=== PATIENT | male | born 1955 | race African-American/Black ===

== ENCOUNTER 2024-01-16 12:05 | Outpatient (REF) | payer OTHER, SELFPAY ==
[2024-01-17 15:34] LABS: Appearance Urine Turbid; Color Urine Dark Yellow; Glucose Urine UA Negative (Negative); Leukocyte Esterase Urine Trace (Negative); Nitrite Urine Negative (Negative); PH 5.5 (5.0-9.0); Specific Gravity - Urine 1.025 (1.005-1.025); UMIC TRIGGER UACC YES; Urine Blood Negative (Negative); Urine Ketones Trace mg/dL (Negative); Urine Protein 30 (1+) mg/dL (Neg-Trace)
[2024-01-17 15:46] LABS: Bacteria Urine None Seen (None Seen); Calcium Oxalate Crystals Urine Present; RBC Urine 0-2 /HPF (0-2); Squamous Epithelial Cell Urine 0-2 /HPF (0-2); WBC Urine 0-5 /HPF (0-5)
== END 2024-01-16 12:06 | disposition home or self-care (01) ==
LOC: HO.HHCLNP 12:05
PROVIDERS: Visit Provider Nurse Practitioner
DX: R39.9 Unspecified symptoms and signs involving the genitourinary system (principal)
CPT/HCPCS: 81001

== ENCOUNTER 2024-01-17 10:47 | Outpatient (REF) | payer SELFPAY ==
[2024-01-17 14:38] LABS: Prostate Specific Antigen Scr 18.56 ng/mL (<0.05-4.0)
== END 2024-01-17 10:48 | disposition home or self-care (01) ==
LOC: HO.HHCL 10:47
PROVIDERS: Visit Provider Nurse Practitioner
DX: R39.9 Unspecified symptoms and signs involving the genitourinary system (principal); Z12.5 Encounter for screening for malignant neoplasm of prostate
CPT/HCPCS: 36415; 84153

== ENCOUNTER 2024-08-08 11:17 | Outpatient (REF) | payer OTHER, SELFPAY ==
--- OUTSIDE RECORDS SUMMARY | 2024-08-08 11:39 | XMS_ITS | Continuity of Care Document ---
Author Organization [facility] Address [address] [facility] [address] [place] [address] Phone Care Team Providers Care Program Support Clerk Name Role Phone JAJA OD, KI Unavailable [...] Provider Providers Copied on Encounter Castro [facility]ia, [facility], [place], [place], [id number], [place] tel:[phone] Carlos Tapia regular eye exam, today full exam (chief complaint) Age-related nuclear cataract, bilateralKeratoco njunct sicca, not specified as Sjogren's, bilateral JAJA FERRER [address], [place], [id number] , [place]. tel: [phone] Referring Provider: WALTER HOLMAN MD, [address] [facility] [address], [place], [address]. tel:[phone] Family History Family Member Type Diagnosis Age At Onset No Information Payers Payer name Insurance type Covered republican ID Authoriza tion(s) [employer] Options-Comm Cross Assignment-DERRICK [id number] Social History Type Description Quantity Date Captured Comments Alcohol Use Details Unknown Caffeine Use Details Unknown Tobacco Use Status No Information Smoking Status No Information Sex Male Chief Complaint And Reason For Visit From encounter dated 03/07/2021 15:00'. regular eye exam, today full exam [...] Date Instruction Additional Infor mation Impression/Plan - Di scussed findings of chronic inflammation OU consistent with dryness. Patient advised to use warm compresses with lid massage daily. Recommended artificial tears at least QID or PRN OU. Discussed benefit of O3FA supplements. Related to Keratoconjunct sicca, not specified as Sjogren's, bilateral Impression/Plan - Al l findings discussed with the patient. Surgery is not indicated at this time. Monitor. Patient advised can get new spec Rx if desires. Related to Age-related nuclear cataract, bilateral Assessments Type Assessment Date assessment Age-related nuclear cataract, bi lateral (H25.13) - assessment Keratoconjunct sicca , not specified as Sjogren's, bilateral (H16.223) - impression Age-related nuclear cataract, bi lateral (H25.13) - impression Keratoconjunct sicca , not specified as Sjogren's, bilateral (H16.223) - Patient Care Teams Name Effective Dates (start - stop) Status Members No Information
--- OUTSIDE RECORDS SUMMARY | 2024-08-08 11:39 | XMS_ITS | Encounter Summary ---
Author Organization [employer] Address [address] [place] [address] [address] [place] [address] Care Team Providers Care Project Assistant Name Role Phone Parmindernavid Celeste FATOU Primary Care Provider [phone] Encounter Details Date Type Department Care Team (Latest Contact Info) Description 08/08/2024 Travel Social History Tobacco Use Types Packs/Day Years Used Date Smoking Tobacco: Former Cigarettes Passive Smoke Exposure: Current Smokeless Tobacco: Former Depression Answer Date Recorded Patient Health Questionnaire-9 Score 13 08/08/2024 Patient Health Questionnaire-9 Score 13 08/08/2024 Last PHQ-9: Questionnaire Data Not on file 0 08/08/2024 Depression Answer Date Recorded Patient Health Questionnaire-2 Score 4 08/08/2024 Sex and Gender Information Value Date Recorded Sex Assigned at Male 01/16/2024 2:03 PM EDT Legal Sex Male 11:39 AM EDT Gender Identity Male 01/16/2024 2:03 PM EDT Sexual Orientation Straight 01/16/2024 2: 03 PM EDT documented as of this encounter Functional Status * Over the past 2 weeks, how often have you been bothered by any of the following problems? Question Answer Date of Assessment Author Patient Health Questionnaire -2 Score 4 08/08/2024 11:15 AM EDT Nishi Ross MA * Little interest or pleasure in doing things Answer Date of Assessment Author More than half the days 08/08/2024 11:15 AM EDT Nishi Ross MA * Feeling down, depressed, or hopeless Answer Date of Assessment Author More than half the days 08/08/2024 11:15 AM Nishi Barreto MA * Trouble falling or staying asleep, or sleeping too much Answer Date of Assessment Author More than half the days 08/08/2024 11:15 AM Nishi Barreto MA * Feeling tired or having little energy Answer Date of Assessment Author Nearly every day 08/08/2024 11:15 AM Nishi Barreto MA * Poor appetite or overeating Answer Date of Assessment Author Not at all 08/08/2024 11:15 AM Nishi Barreto MA * Feeling bad about yourself - or that you are a failure or have let yourself or your family down Answer Date of Assessment Author More than half the days 08/08/2024 11:15 AM Nishi Barreto MA * Trouble concentrating on things, such as reading the newspaper or watching television Answer Date of Assessment Author More than half the days 08/08/2024 11:15 AM Nishi Barreto MA * Moving or speaking so slowly that other people could have noticed? Or the opposite - being so fidgety or restless that you have been moving around a lot more than usual. Answer Date of Assessment Author Not at all 08/08/2024 11:15 AM Nishi Barreto MA * Thoughts that you would be better off or hurting yourself in some way Answer Date of Assessment Author Not at all 08/08/2024 11:15 AM Nishi Barreto MA * Patient Health Questionnaire-9 Score Answer Date of Assessment Author 13 08/08/2024 11:15 AM Nishi Barreto MA * How difficult have these problems made it for you to do your work, take care of things at home, or get along with other people? Answer Date of Assessment Author Somewhat difficult 08/08/2024 11:15 AM Nishi Mitchell MA * Over the last 2 weeks, how often have you been bothered by any of the following problems? Question Answer Date of Assessment Author Feeling nervous, anxious, or on edge 0 08/08/2024 11:16 AM EDT Nishi Ross MA Not being able to stop or co ntrol worrying 2 08/08/2024 11:16 AM EDT Nishi Ross MA Worrying too much about diff erent things 2 08/08/2024 11:16 AM EDT Nishi Ross MA Trouble relaxing 2 08/08/2024 11:16 AM EDT Nishi Ross MA Being so restless that it is hard to sit still 2 08/08/2024 11:16 AM EDT Nishi Ross MA Becoming easily annoyed or irritable 2 08/08/2024 11:16 AM EDT Nishi Ross MA Feeling afraid as if somethi ng awful might happen 0 08/08/2024 11:16 AM EDT Nishi Ross MA CARMEN-7 Total Score 10 08/08/2024 11:16 AM EDT Nishi Ross MA documented as of this encounter Plan of Treatment Not on file documented as of this encounter Visit Diagnoses Not on filedocumented in this encounter Additional Health Concerns Assessment Noted Time PHQ-9 Depression Total Score: 13 025 11:15 AM EDT documented as of this encounter Care Teams Project Assistant Relationship Specialty Start Date End Date Celeste Luciano NP [address] [place] [address] PCP - General Family Medicine 01/30/24 documented as of this encounter
--- OUTSIDE RECORDS SUMMARY | 2024-08-08 11:39 | XMS_ITS | Encounter Summary ---
Author Organization [employer] Address [address] [place] [address] [address] [place] [address] Care Team Providers Care Water Resource Agent Name Role Phone Celeste Luciano FATOU Primary Care Provider [phone] Reason for Visit * Reason Onset Date Comments chartprep 08/07/2024 Encounter Details Date Type Department Care Team (Late st Contact Info) Description 08/07/2024 Telephone [facility] [address] [place] [address] Nishi Ross MA chartprep Social History Tobacco Use Types Packs/Day Years [...] PM EDT documented as of this encounter Miscellaneous Notes * Telephone Encounter - Nishi Ross MA - 08/07/2024 10:44 AM EDT Chart Prep Labs: done Images: not applicable Referrals: not applicable referral was cancelled see on referrals notes Vaccines due: Covid, Flu, PCV20, Tdap, and Zoster Screenings: colonoscopy Overdue care gaps: SBIRT, SDOH, PHQ-9, CARMEN-7, Oral health screening, and Disability screen documented in this encounter Plan of Treatment Not on file documented as of this encounter Visit Diagnoses Not on filedocumented in this encounter Care Teams Water Resource Agent Relationship Specialty Start Date End Date Celeste Luciano NP [address] [place] [address] PCP - General Family Medicine 01/30/24 documented as of this encounter
--- OUTSIDE RECORDS SUMMARY | 2024-08-08 11:39 | XMS_ITS | Encounter Summary ---
Author Organization [employer] Address [address] [place] [address] [address] [place] [address] Care Team Providers Care Adjunct Psychology Instructor Name Role Phone Celeste Luciano NP Primary Care Provider [phone] Reason for Referral * Consultation (Routine) - Authorized Specialty Diagnoses / Procedures Referred By Contmatt t Referred To Contact Optometry Diagnoses Primary hypertension Celeste Luciano NP [address] [place] [address] Phone: tel: fax: [facility] [address] [place] [address] Phone: tel: fax: Referral ID Status Reason Start Date Expiration Date Visits Requested Visits Authorized [id number] Authorized Consult and Treat 08/08/2024 08/08/2025 1 1 Reason for Visit * Reason Comments Follow-up Encounter Details Date Type Department Care Team (Late st Contact Info) Description 08/08/2024 10:00 AM EDT Office Visit [facility] [address] [place] [address] Celeste Luciano NP [address] [place] [address] Primary hypertension (Primary Dx); Elevated PSA; Acute right-sided low back pain without sciatica; Hx of primary hypertension; Constipation, unspecified constipation type Social History Tobacco Use Types Packs/Day Years [...] PM EDT documented as of this encounter Last Filed Vital Signs Vital Sign Reading Time Taken Comments Blood Pressure 141/77 08/08/2024 10:16 AM EDT Pulse 61 08/08/2024 10:16 AM EDT Temperature 36.8 ??C (98.2 ??F) 08/08/2024 10:16 AM E DT Respiratory Rate 15 08/08/2024 10:16 AM EDT Oxygen Saturation 98% 08/08/2024 10:16 AM EDT Inhaled Oxygen Concentration - - Weight 87.5 kg (193 lb) 08/08/2024 10:16 AM EDT Height 170.2 cm (5' 7 ) 08/08/2024 10:16 AM EDT Body Mass Index 30.23 08/08/2024 10:16 AM EDT documented in this encounter Functional Status * Over the [...] 11:15 AM EDT Nishi Ross MA * Trouble falling or staying asleep, or sleeping too much Answer Date of Assessment Author More than half the days 08/08/2024 11:15 AM EDNishi Burr MA * Feeling tired or having little [...] or on edge 0 08/08/2024 11:16 AM Nishi Barreto MA Not being able to stop or co ntrol worrying 2 08/08/2024 11:16 AM Nishi Barreto MA Worrying too much about diff erent [...] as of this encounter Plan of Treatment Scheduled Orders Name Type Priority Associated Diagnoses Orde r Schedule Basic Metabolic Panel Lab Routine Primary hypertension Expected: 08/08/2024 (Approximate), Expires: 08/08/2025 Albumin, Random Urine W/Creatinine Lab Routine Primary hypertension Expected: 08/08/2024 (Approximate), Expires: 08/08/2025 Urinalysis, Complete, with Reflex to Culture Lab Routine Elevated PSA Ordered: 08/08/2024 CBC auto differential Lab Routine Elevated PSA Expected: 08/08/2024 (Approximate), Expires: 08/08/2025 PSA, Total With Reflex to PSA, Free Lab Routine Elevated PSA Expected: 08/08/2024 (Approximate), Expires: 08/08/2025 C-reactive Protein Lab Routine Elevated PSA Expected: 08/08/2024 (Approximate), Expires: 08/08/2025 Lipid Panel, Standard Lab Routine Primary hypertension Expected: 08/08/2024 (Approximate), Expires: 08/08/2025 Scheduled Referrals Name Type Priority Associated Diagnoses Orde r Schedule Referral to [facility] Outpatient Referral Routine Primary hypertension Expected: 08/08/2024 (Approximate), Expires: 08/08/2025 documented as of this encounter Visit Diagnoses Diagnosis Primary hypertension- Primary Unspecified essential hypertension Elevated PSA Elevated prostate specific antigen (PSA) Acute right-sided low back pain without sciatica Hx of primary hypertension Constipation, unspecified constipation type documented in this encounter Additional Health Concerns Assessment Noted Time PHQ-9 Depression Total Score: 13 025 11:15 AM EDT documented as of this encounter Care Teams Adjunct Psychology Instructor Relationship Specialty Start Date End Date Celeste Luciano NP [address] [place] [address] PCP - General Family Medicine 01/30/24 documented as of this encounter
--- OUTSIDE RECORDS SUMMARY | 2024-08-08 11:39 | XMS_ITS | Encounter Summary ---
Author Organization [employer] Address [address] [place] [address] 7[address] [place] [address] Care Team Providers Care Commercial Litigation Paralegal Name Role Phone Celeste Luciano NP Primary Care Provider [phone] Encounter Details Date Type Department Care Team ([facility] st Contact Info) Description 07/15/[address] [facility] MEDICINE [address] [place] [address] Celeste Luciano NP [address] [place] [address] Social History Tobacco Use Types Packs/Day Years Used Date Smoking Tobacco: Former Cigarettes Passive Smoke Exposure: Current Smokeless Tobacco: Former Sex and Gender Information Value Date Recorded Sex Assigned at Male 01/16/2024 2:03 PM EDT Legal Sex Male 11:39 AM EDT Gender Identity Male 01/16/2024 2:03 PM EDT Sexual Orientation Straight 01/16/2024 2: 03 PM EDT documented as of this encounter Plan of Treatment Not on file documented as of this encounter Visit Diagnoses Not on filedocumented in this encounter Care Teams Commercial Litigation Paralegal Relationship Specialty Start Date End Date Celeste Luciano NP [address] [place] [address] PCP - General Family Medicine 01/30/24 documented as of this encounter
--- OUTSIDE RECORDS SUMMARY | 2024-08-08 11:39 | XMS_ITS | Clinical Summary ---
Author Organization [employer] Address [address] [facility] [address] [place] [address] Care Team Providers Care Aging Room Operator Name Role Phone Parmindernavid Celeste FATOU Primary Care Provider [phone] Allergies No known active allergies Medications Blood Pressure kitIndications: Hx of primary hypertension 1 each 2 times daily. 1 kit 01/16/20 24 025 Active hydrocortisone 1 % creamIndication s:Genital pruritus Apply topically 2 times daily. 28 g 01/16/20 24 Active dutasteride (Avodart) 0.5 MG capsule Take 0.5 mg by mouth Once per day. Active silodosin (Rapaflo) 8 MG capsule Take 8 mg by mouth Once per day. Active baclofen (Lioresal) 10 MG tabletIndicatio ns:Acute right-sided low back pain without sciatica Take one tablet TID PRN 270 tablet 08/09/19 25 Active Diclofenac Sodium 1 % gelIndications: Acute right-sided low back pain without sciatica Apply 1 g topically if needed in the morning, at noon, and at bedtime (pain). 100 g 1 08/09/19 25 025 Active acetaminophen (Tylenol Extra Strength) 500 MG tabletIndicatio ns:Acute right-sided low back pain without sciatica Take 2 tablets (1,000 mg) by mouth every 6 (six) hours if needed for mild pain. 720 tablet 08/09/19 25 025 Active losartan (Cozaar) 25 MG tabletIndicatio ns:Primary hypertension,Hx of primary hypertension Take 1 tablet (25 mg) by mouth Once per day. 90 tablet 1 08/09/19 25 025 Active tamsulosin (Flomax) 0.4 MG 24 hr capsuleIndicati ons:Elevated PSA Take 1 capsule (0.4 mg) by mouth Once per day. 90 capsule 1 08/09/19 25 025 Active docusate sodium (Colace) 100 MG capsuleIndicati ons:Constipatio n, unspecified constipation type Take 1 capsule (100 mg) by mouth 2 times daily. 180 capsule 1 08/09/19 25 025 Active losartan (Cozaar) 25 MG tabletIndicatio ns:Hx of primary hypertension TAKE 1 TABLET BY MOUTH EVERY DAY 30 tablet 1 03/11/20 24 025 Discontinued(Re order (will not trigger notification to Pharmacy)) tamsulosin (Flomax) 0.4 MG 24 hr capsule Take 0.4 mg by mouth Once per day. 025 Discontinued(Re order (will not trigger notification to Pharmacy)) Active Problems Problem Noted Date Diagnosed Date Primary hypertension 08/08/2024 Encounters Date Type Department Care Team Description 08/08/2024 10:00 AM EDT Office Visit [facility] MEDICINE [address] [place] [address] Celeste Luciano NP Primary hypertension (Primary Dx); Elevated PSA; Acute right-sided low back pain without sciatica; Hx of primary hypertension; Constipation, unspecified constipation type 08/08/2024 Travel 08/07/[address] [address] Nishi Ross MA chartprep 07/18/[address] [address] Nishi Ross MA scheduled follow up appointment 07/15/[address] [address] Celeste Luciano NP from Last 3 Months Social History Tobacco Use Types Packs/Day Years Used Date Smoking Tobacco: Former Cigarettes Passive Smoke Exposure: Current Smokeless Tobacco: Former Tobacco Cessation:Counseling Given: Not Answered Depression Answer Date Recorded Patient Health Questionnaire-9 [...] Orientation Straight 01/16/2024 2: 03 PM EDT Last Filed Vital Signs Vital Sign Reading [...] Mass Index 30.23 08/08/2024 10:16 AM EDT Plan of Treatment Health Maintenance Due Date Last Done Comments CT Colonography 1956 Colonoscopy 1956 Depression Screening 1956 FIT 1956 FOBT 1956 Lipid Panel 1956 SDOH Screening 1956 Sigmoidoscopy 1956 Hepatitis C Screening 1974 DTaP/Tdap/Td Vaccines (1 - Tdap) 1975 Pneumococcal Vaccine: 50+ Ye ars (1 of 1 - PCV) 2006 Zoster Vaccines (1 of 2) 2006 COVID-19 Vaccine ( - 2023-2 5 season) 2023 Influenza Vaccine (#1) 2023 Colorectal Cancer Screening 05/25/2024 FIT DNA/Cologuard 05/25/2024 05/25/2021 Alcohol/Substance Use Screening 08/08/2025 Tobacco Screening 08/08/2025 08/08/2024 RSV Patients and Pa tients Aged 60 years or older (1 - 1-dose 75+ series) 2031 HIB Vaccines Aged Out No longer eligi ble based on patient's age to complete this topic HPV Vaccines Aged Out No longer eligi ble based on patient's age to complete this topic Hepatitis A Vaccines Aged Out No long er eligible based on patient's age to complete this topic Hepatitis B Vaccines Aged Out No long er eligible based on patient's age to complete this topic IPV Vaccines Aged Out No longer eligi ble based on patient's age to complete this topic Meningococcal B Vaccine Aged Out No l onger eligible based on patient's age to complete this topic Meningococcal Vaccine Aged Out No hany jeniffer eligible based on patient's age to complete this topic RSV under 20 months Aged Out No longe r eligible based on patient's age to complete this topic Rotavirus Vaccines Aged Out No longer eligible based on patient's age to complete this topic Insurance [employer] F[employer] Care Teams Aging Room Operator Relationship Specialty Start Date End Date Celeste Luciano NP [address] [place] [address] PCP - General Family Medicine 01/30/24
--- OUTSIDE RECORDS SUMMARY | 2024-08-08 11:39 | XMS_ITS | Encounter Summary ---
Author Organization [employer] Address [address] [place] [address] [address] [place] [address] Care Team Providers Care Vehicle Service Agent Name Role Phone Celeste Luciano NP Primary Care Provider [phone] Reason for Visit * Reason Onset Date Comments Med Refill 04/03/2024 Encounter Details Date Type Department Care Team (Late st Contact Info) Description 04/03/2024 Refill [facility] [address] [place] [id number] Cabrera Lezama MD [address] [place] [address] Urinary retention Social History Tobacco Use Types Packs/Day Years [...] as of this encounter Visit Diagnoses Diagnosis Urinary retention Unspecified retention of urine documented in this encounter Care Teams Vehicle Service Agent Relationship Specialty Start Date End Date Celeste Luciano NP [address] [place] [address] PCP - General Family Medicine 01/30/24 documented as of this encounter
--- OUTSIDE RECORDS SUMMARY | 2024-08-08 11:39 | XMS_ITS | Clinical Summary ---
Author Organization [facility] Address [address] [place] [address] Care Team Providers Care Material Handler Name Role Phone Unavailable Primary Care Provider Unavailabl e Allergies No known active allergies Medications No known medications Social History Tobacco Use Types Packs/Day Years Used Date Smoking Tobacco: Never Assessed Sex and Gender Information Value Date Recorded Sex Assigned at Not on file Legal Sex Male 10:53 AM EDT Gender Identity Not on file Sexual Orientation Not on file Last Filed Vital Signs Vital Sign Reading Time Taken Comments Blood Pressure 143/79 01/11/2021 11:11 AM EDT Pulse 64 01/11/2021 11:11 AM EDT Temperature 36.5 ??C (97.7 ??F) 01/11/2021 11:11 AM E DT Respiratory Rate - - Oxygen Saturation 97% 01/11/2021 11:11 AM EDT Inhaled Oxygen Concentration - - Weight 90.7 kg (200 lb) 01/11/2021 11:11 AM EDT Height 170 cm (5' 6.93 ) 01/11/2021 11:11 AM EDT Body Mass Index 31.39 01/11/2021 11:11 AM EDT Plan of Treatment Health Maintenance Due Date Last Done Comments Hepatitis C Virus Screening 1956 DTaP/Tdap/Td Vaccines (1 - Tdap) 1975 Colonoscopy 2001 Pneumococcal Vaccines 50+ (1 of 1 - PCV) 2006 Zoster (Shingles) Vaccine (1 of 2) 2006 COVID-19 Vaccine ( - 2023-2 5 season) 2023 Influenza Vaccine 10/24/2024 RSV Vaccine 60 years and old er and Patients (1 - 1-dose 75+ series) 2031 Hepatitis B Vaccines Aged Out No long er eligible based on patient's age to complete this topic Insurance [facility]
--- OUTSIDE RECORDS SUMMARY | 2024-08-08 11:39 | XMS_ITS | Encounter Summary ---
Author Organization [employer] Address [address] [place] [address] 7[address] [place] [address] Care Team Providers Care Commercial Lines Manager Name Role Phone Celeste Luciano NP Primary Care Provider [phone] Reason for Visit * Reason Onset Date Comments Med Refill 04/03/2024 Encounter Details Date Type Department Care Team (Late st Contact Info) Description 04/03/2024 Refill [facility] MED[facility] [address] [place] [address] Celeste Luciano NP [address] [place] [address] Hx of primary hypertension Social History Tobacco Use Types Packs/Day Years [...] as of this encounter Visit Diagnoses Diagnosis Hx of primary hypertension documented in this encounter Care Teams Commercial Lines Manager Relationship Specialty Start Date End Date Celeste Luciano NP [address] [place] [address] PCP - General Family Medicine 01/30/24 documented as of this encounter
--- OUTSIDE RECORDS SUMMARY | 2024-08-08 11:39 | XMS_ITS | Patient Health Record ---
Author Organization [facility] [facility] Billing Info Address [address] [place], [place] [id number] Care Team Providers Care Post Graduate Internship Name Role Phone DR MIQUEL MARINELLI Primary Care Provider Unavailabl e Allergies No Known Allergies Reason For Referral No Information Medications Medication SIG (Take, Route, Frequency, Duration) Notes Start Date End Date Status Tadalafil 10 MG 1 tablet as needed O rally for 30 day(s) Active Atorvastatin Calcium 20 MG 1 tablet Oral ly Once a day for 30 day(s) Active Finasteride 5 MG 1 tablet Orally Once a day for 30 day(s) Active Tamsulosin HCl 0.4 MG 1 capsule Orally O nce a day for 30 day(s) Active Solifenacin Succinate 5 MG 1 tablet Oral ly Once a day for 30 day(s) Active Social History Tobacco Use: Social History Observation Description Date Details (start date - stop date) Former Smoker NA - NA Tobacco Status: Question Answer Notes Patient is a former smoker Plan Of Treatment Pending Test Test Name Order Date COLONOSCOPY, SCREENING, INDIVIDUAL W/OUT HIGH RISK (G0121) 03/31/2021 Insurance Providers Payer Name Payer Address Payer Phone Subscriber Number Group Number Insured Name Patient Relationship to Insured Coverage Start Date Coverage End Date BR[employer] TH CLAIMS PRIOR TO 2021 [address] [address] JESSICA SARGENT [id number] ALYSIA GOLDMAN Self - patient is the insured Medical (General) History Medical History History ICD Code Hyperlipidemia Hypertension BPH Neurogenic bladder Surgical History Surgery Date(Month/Year) laminectomy hernia repair
[2024-08-08 13:07] LABS: MANUAL DIFF FLAG NO
[2024-08-08 13:12] LABS: Appearance Urine Turbid; Color Urine Yellow; Glucose Urine UA Negative (Negative); Leukocyte Esterase Urine Negative (Negative); Nitrite Urine Negative (Negative); PH 5.5 (5.0-9.0); UMIC TRIGGER UACC YES; Urine Blood Negative (Negative); Urine Ketones Trace mg/dL (Negative); Urine Protein 30 (1+) mg/dL (Neg-Trace)
[2024-08-08 13:15] LABS: Basophils Percent Auto 0.8 % (0-2); Eosinophils Absolute Auto 0.1 X10*3/uL (0.0-0.4); Eosinophils Percent Auto 2.6 % (0-4); Hematocrit 44.1 % (42.0-52.0); Hemoglobin 14.7 g/dl (14.0-18.0); Imm Gran Abs Auto 0.04 X10*3/uL (0.00-0.03); Imm Gran Pct Auto 0.8 % (0.0-0.4); Lymphocytes Absolute Auto 1.8 X10*3/uL (1.2-4.9); Mean Corpuscular HGB Conc 33.3 g/dl (31.0-36.0); Mean Corpuscular Hemoglobin 30.4 pg (27.0-33.0); Mean Corpuscular Volume 91.1 fL (80.0-98.0); Mean Platelet Volume 9.6 fL (9.4-12.4); Monocytes Absolute Auto 0.5 X10*3/uL (0.1-1.2); Monocytes Percent Auto 9.1 % (2-11); Neutrophils Absolute Auto 2.6 x10*3/uL (2.0-8.3); Neutrophils Percent Auto 50.7 % (45-73); Platelet Count 219 X10*3/uL (160-400); Red Blood Count 4.84 X10*6/uL (4.60-5.80); Red Cell Distribution Width 13.2 % (11.0-16.0); White Blood Count 5.1 X10*3/uL (4.8-10.8)
[2024-08-08 13:17] LABS: Bacteria Urine None Seen (None Seen); Hyaline Casts Urine 0-2 /LPF (0-2); RBC Urine 0-2 /HPF (0-2); Squamous Epithelial Cell Urine 0-2 /HPF (0-2); WBC Urine 0-5 /HPF (0-5)
[2024-08-08 13:42] LABS: Creatinine Urine 159.83 mg/dL; Microalbum/Creatinine Ratio Ur 99.4 ug/mg cr (<30)
[2024-08-08 13:55] LABS: Anion Gap 12 (12-20); Blood Urea Nitrogen 13 mg/dL (9-16); Calcium 9.3 mg/dL (8.4-10.2); Carbon Dioxide 27 mmol/L (22-29); Chloride 103 mmol/L (96-108); Cholesterol 197 mg/dL (<200); Estimated Glomerular Filt Rate > 60; Glucose Random 83 mg/dL (60-115); HDL Cholesterol 46 mg/dL (>40); LDL Cholesterol Calculated 140 mg/dL (<100); Potassium 4.4 mmol/L (3.3-5.1); Sodium 138 mmol/L (135-145); Triglycerides 57 mg/dL (<150)
[2024-08-08 14:00] LABS: PSA,Total (Free>4and<10) 24.26 ng/mL (0.00-4.00)
== END 2024-08-08 11:18 | disposition home or self-care (01) ==
LOC: HO.HHCL 11:17
PROVIDERS: Visit Provider Nurse Practitioner
DX: R97.20 Elevated prostate specific antigen [PSA] (principal); R39.9 Unspecified symptoms and signs involving the genitourinary system; I10 Essential (primary) hypertension; Z12.5 Encounter for screening for malignant neoplasm of prostate
CPT/HCPCS: 36415; 80048; 80061; 81001; 82043; 82570; 84153; 85025; 86140

== ENCOUNTER 2025-03-09 13:54 | Outpatient (REF) | payer OTHER, SELFPAY ==
--- OUTSIDE RECORDS SUMMARY | 2021-03-07 10:00 | XMS_ITS | Continuity of Care Document ---
Author Organization [facility] Address [address] [facility] [address] [place] [address] Phone Care Team Providers Care Counseling Center Director Name Role Phone JAJA OD, KI Unavailable Unavailable Medications Medication Instructions Dosage Effective Dates (start - stop) Status Comments tamsulosin 0.4 mg capsule take 1 capsule by oral route every day 1/2 hour following the same meal each day 0.4 MG - Active Miralax 17 gram oral powder packet take 1 packet by oral route every day mixed with 8 oz. water, juice, soda, coffee or tea - Active tizanidine 4 mg capsule take 1 capsule by oral route every 6 - 8 hours as needed not to exceed 3 doses in 24 hours 4 MG - Active finasteride 5 mg tablet take 1 tablet by oral route every day 5 MG - Active losartan 50 mg tablet take 1 tablet by o ral route every day 50 MG - Active Procedures Procedure Date Ophth Serv: Med Exam; Comp New Ophth Serv: Med Exam; Comp New Advance Directives Directive Yes / No Effective Date File Name No Information Encounters Encounter Description Practice Location Reason(s) For Visit Diagnoses Date Provider Providers Copied on Encounter Castro Tapia, [facility] [employer] [place], [place], [id number], [place] tel:[phone] Carlos Tapia regular eye exam, today full exam (chief complaint) Age-related nuclear cataract, bilateralKeratoco njunct sicca, not specified as Sjogren's, bilateral JAJA FERRER [address], [place], [id number] , [place]. tel: [phone] Referring Provider: WALTER HOLMAN MD, [address] [facility] [address], [place], [address]. tel:[phone] Family History Family Member Type Diagnosis Age At Onset No Information Payers Payer name Insurance type Covered alliance party ID Authoriza tiann(s) Health Options-Comm Cross Assignment-DERRICK [id number] Social History Type Description Quantity Date Captured Comments Alcohol Use Details Unknown Caffeine Use Details Unknown Tobacco Use Status No Information Smoking Status No Information Sex Male Chief Complaint And Reason For Visit From encounter dated '03/07/2021 15:00'. regular eye exam, today full exam (chief complaint). Description: The 65 year old male presents forevaluation of regular eye exam, today full exam in the right eye and left eye, Va, IOP check and DFE exam in both eyes. Reason For Referral Reason For Referral No Information History Of Present Illness Encounter Date Complaint History Of Prese nt Illness regular eye exam, today full exa m The 65 year old male presents for evaluation of regular eye exam, today full exam in the right eye and left eye, Va, IOP check and DFE exam in both eyes. Functional Status Date Functional Assessmen t No Information Instructions Date Instruction Additional Infor mation Impression/Plan - Al l findings discussed with the patient. Surgery is not indicated at this time. Monitor. Patient advised can get new spec Rx if desires. Related to Age-related nuclear cataract, bilateral Impression/Plan - Di scussed findings of chronic inflammation OU consistent with dryness. Patient advised to use warm compresses with lid massage daily. Recommended artificial tears at least QID or PRN OU. Discussed benefit of O3FA supplements. Related to Keratoconjunct sicca, not specified as Sjogren's, bilateral Assessments Type Assessment Date assessment Age-related nuclear cataract, bi lateral (H25.13) - assessment Keratoconjunct sicca , not specified as Sjogren's, bilateral (H16.223) - impression Age-related nuclear cataract, bi lateral (H25.13) - impression Keratoconjunct sicca , not specified as Sjogren's, bilateral (H16.223) - Patient Care Teams Name Effective Dates (start - stop) Status Members No Information
--- OUTSIDE RECORDS SUMMARY | 2021-05-26 07:50 | XMS_ITS | Continuity of Care Document ---
Author Organization [facility] Address [address] [place] [address] Phone Care Team Providers Care Complaint Inspector Name Role Phone Floridalma Wilburn MD Unavailable Unavailable Allergies, Adverse Reactions, Alerts Substance Reaction Status Criticality No Known Allergies Active No Inform ation Medications Medication Instructions Dosage Effective Dates (start - stop) Status Comments methocarbamol 750 mg tablet - Active methylprednisolone 4 mg tablets in a dose pack - Active naproxen 500 mg tablet - Act janay solifenacin 10 mg tablet TAKE 1 TABLET B Y MOUTH AT BEDTIME - Active tadalafil 10 mg tablet TAKE ONE TABLET B Y MOUTH ONE TIME DAILY NEEDED DIRECTED FOR 30 DAYS - Active tramadol 50 mg tablet TAKE ONE TABLET BY MOUTH EVERY 6 HOURS NEEDED FOR PAIN FOR 3 DAYS - Active finasteride 5 mg tablet - Ac tive solifenacin 5 mg tablet - Ac tive losartan 50 mg tablet - Acti ve tamsulosin 0.4 mg capsule - Active atorvastatin 20 mg tablet TAKE 1 TABLET BY MOUTH AT BEDTIME - Active azithromycin 250 mg tablet TK 2 TS PO ON DAY 1, THEN TK 1 T PO D FOR 4 DAYS - Active omeprazole 40 mg capsule,delayed release TAKE 1 CAPSULE BY MOUTH EVERY DAY NEEDED FOR STOMACH PAIN OR ACID REFLUX - Active tizanidine 4 mg tablet TAKE 1 TABLET BY MOUTH EVERY NIGHT AT BEDTIME NEEDED FOR MUSCLE PAIN - Active carvedilol 6.25 mg tablet TAKE 1 TABLET BY MOUTH TWICE DAILY FOR HIGH BLOOD PRESSURE - Active COVID-19 test specimen collection TEST DIRECTED - Active Procedures Procedure Date Ophthalmological services: m edical examination and evaluation with initiation of Patient Walked Out Patient Walked Out Advance Directives Directive Yes / No Effective Date File Name No Information Encounters Encounter Description Practice Location Reason(s) For Visit Diagnoses Date Provider Providers Copied on Encounter [facility], [address] [place], [address], [place] tel:[phone] [facility] [employer] floaters (chief complaint) dry eyes (chief complaint) Age-related nuclear cataract, bilateralDry Eyes / Keratoconjunctivitis SiccaMacular degeneration, DRY, EARLY, bilateralVitreous degeneration, right eye 2 Akila Hedrick. [address] [facility], [address], [place], [address], [place]. tel:[phone] [facility], [address] [place], [address], [place] tel:[phone] [facility] [employer] No Information 1 Junaid Nagel. [address] [place], [place], [id number], [place]. tel:[phone] [facility], [address] [place], [address], [place] tel:[phone] [facility] [employer] No Information 1 Junaid Nagel. [address], [place], [id number], [place]. tel:[phone] Family History Family Member Type Diagnosis Age At Onset No Information Payers Payer name Insurance type Covered constitution party ID Authoriza tiann(s) [facility] Health Options DERRICK CI [id number] Social History Type Description Quantity Date Captured Comments Alcohol Use Details No Caffeine Use Details 1 cup per day Tobacco Use Status Ex-smoker Smoking Status Former smoker Sex Male Chief Complaint And Reason For Visit From encounter dated '05/26/2021 12:50'. floaters (chief complaint). Description: The 66 year old male presents for evaluation of floaters in the right eye. It started about 2 month(s) ago. It occurs all the time. The onset was gradual. VA not affected. The symptom is constant. Patient deferred refraction today.(-) Flashes of the light (-) Drops dry eyes (chief complaint). Description: The patient also presents for evaluation of dry eyes in both eyes. It occurs during the day. The onset was gradual. VA not affected. The symptom is constant. Reason For Referral Reason For Referral No Information History Of Present Illness Encounter Date Complaint History Of Prese nt Illness floaters The 66 year old male presents for evaluation of floaters in the right eye. It started about 2 month(s) ago. It occurs all the time. The onset was gradual. VA not affected. The symptom is constant. Patient deferred refraction today.(-) Flashes of the light (-) Drops dry eyes The patient also presents for evaluation of dry eyes in both eyes. It occurs during the day. The onset was gradual. VA not affected. The symptom is constant. Redness in Eyes Functional Status Date Functional Assessmen t No Information Instructions Date Instruction Additional Infor nicolle Impression/Plan - No treatment currently recommended. The patient will monitor vision changes and contact us with any decrease in vision. Related to Age-related nuclear cataract, bilateral Impression/Plan - Th ere is no evidence of permanent changes to the cornea. Explained condition does not have a cure and will need artificial tears for maintenance.Recommend dry eye treatment:- warm compresses BID 10 min - artificial tears QID and PRN Related to Dry Eyes / Keratoconjunctivitis Sicca Impression/Plan - Pa dorian has mild Dry Age Related Macular Degeneration. Explain that this is a disease related to aging with a genetic componenent. Cigarrete smoking is known to be a risk factor. There is no specific treatement to stop the progression of this condition. There is no indication for AREDS 2 supplementation at this time. Daily monitoring of central vision with an Amsler grid is recommended and patients need to report any change in vision promtly. Periodic dilated exam, macular OCT and fundus photos are part of the stardard of care. Mac OCT next visit. Related to Macular degeneration, DRY, EARLY, bilateral Impression/Plan - Th ere is no evidence of retinal tears or detachments. All signs and risks of retinal detachment and tears were discussed in detail. Patient instructed to call office immediately if any symptoms noted. Follow-up in 3 months for recheck, sooner PRN. Explained I would like to recheck in 1 month but [place] will be [place] the [place] 3 [place]. I counseled if any symptoms he should be checked by an tank truck operator the same day where he is. Pt should be followed where he will be if he is unable to return in 3 months. Related to Vitreous degeneration, right eye Follow up - Return i n 3 months. MAC OCT OU and DFE OD. Assessments Type Assessment Date assessment Age-related nuclear cataract, bi lateral impression Age-related nuclear cataract, bi lateral: H25.13 OU. assessment Dry Eyes / Keratoconjunctivitis Sicca impression Dry Eyes / Keratoconjunctivitis Sicca: H16.223. assessment Macular degeneration, DRY, EARLY , bilateral impression Macular degeneration, DRY, EARLY , bilateral: H35.3131 OU. assessment Vitreous degeneration, right eye impression Vitreous degeneration, right eye : H43.811 OD. Patient Care Teams Name Effective Dates (start - stop) Status Members No Information
--- OUTSIDE RECORDS SUMMARY | 2025-03-09 13:00 | XMS_ITS | Encounter Summary ---
Author Organization [employer] Address [address] [place] [address] [address] [place] [address] Care Team Providers Care Chief Crew Scheduler Name Role Phone Celeste Luciano NP Primary Care Provider [phone] Reason for Visit * Reason Comments Follow-up Encounter Details Date Type Department Care Team (Latest Contact Info) Description 03/09/2025 1:00 PM EST Office Visit [facility] MEDICINE [address] [place] [address] Celeste Luciano NP [address] [place], [place] [phone] Microalbuminuria (Primary Dx); Primary hypertension; Screening for colon cancer; BPH with elevated PSA and lower urinary tract symptoms Social History Tobacco Use Types Packs/Day Years Used Date Smoking Tobacco: Former Cigarettes Passive Smoke Exposure: Current Smokeless Tobacco: Former Tobacco Cessation:Counseling Given: Not Answered Depression Answer Date Recorded Patient Health Questionnaire-9 Score 5 03/09/2025 Patient Health Questionnaire-9 Score 5 03/09/2025 Last PHQ-9: Questionnaire Data Not on file 1 05/10/2024 Housing Stability Answer Date Recorded What is your housing situation today? I have ivanna humphreys 08/08/[address] you li ve. Do you have problems with any of the following? None of the above 08/08/2024 Food Insecurity Answer Date Recorded Within the past 12 months, y ou worried that your food would run out before you got money to buy more: Never True 08/08/2024 Within the past 12 months,th e food you bought just didn't last and you didn't have enough money to get more: Never True Transportation Answer Date Recorded In the past 12 months, has l ack of transportation kept you from medical appts, meetings, work or from getting things needed for daily living? No 08/08/2024 Utilities Answer Date Recorded In the past 12 months, has t he electric, gas, oil or water company threatened to shut off services in your home? No 08/08/2024 Depression Answer Date Recorded Patient Health Questionnaire-2 Score 2 03/09/2025 Internet Access Answer Date Recorded Internet Access Q1 Yes 08/08/2024 Internet Access Q2 Not on file 08/08/2024 Sex and Gender Information Value Date Recorded Sex Assigned at Male 01/16/2024 2:03 PM EDT Legal Sex Male 11:39 AM EDT Gender Identity Male 01/16/2024 2:03 PM EDT Sexual Orientation Straight 01/16/2024 2: 03 PM EDT documented as of this encounter Last Filed Vital Signs Vital Sign Reading Time Taken Comments Blood Pressure 158/78 03/09/2025 1:14 PM EST Pulse 61 03/09/2025 1:14 PM EST Temperature 36.2 C (97.1 F) 03/09/2025 1:14 PM EST Respiratory Rate 16 03/09/2025 1:14 PM EST Oxygen Saturation 99% 03/09/2025 1:14 PM EST Inhaled Oxygen Concentration - - Weight 88.9 kg (196 lb) 03/09/2025 1:14 PM EST Height 170.2 cm (5' 7 ) 03/09/2025 1:14 PM EST Body Mass Index 30.7 03/09/2025 1:14 PM EST documented in this encounter Functional Status * Over the past 2 weeks, how often have you been bothered by any of the following problems? Question Answer Date of Assessment Author Patient Health Questionnaire-2 Score 2 02/23 1:18 PM EST Андрей Davis MA * Little interest or pleasure in doing things Answer Date of Assessment Author Several days 03/09/2025 1:18 PM EST Ny Davis MA * Feeling down, depressed, or hopeless Answer Date of Assessment Author Several days 03/09/2025 1:18 PM Ny Kamara MA * Trouble falling or staying asleep, or sleeping too much Answer Date of Assessment Author Several days 03/09/2025 1:18 PM Ny Kamara MA * Feeling tired or having little energy Answer Date of Assessment Author Several days 03/09/2025 1:18 PM Ny Kamara MA * Poor appetite or overeating Answer Date of Assessment Author Not at all 03/09/2025 1:18 PM Ny Kamara MA * Feeling bad about yourself - or that you are a failure or have let yourself or your family down Answer Date of Assessment Author Several days 03/09/2025 1:18 PM Ny Kamara MA * Trouble concentrating on things, such as reading the newspaper or watching television Answer Date of Assessment Author Not at all 03/09/2025 1:18 PM Ny Kamara MA * Moving or speaking so slowly that other people could have noticed? Or the opposite - being so fidgety or restless that you have been moving around a lot more than usual. Answer Date of Assessment Author Not at all 03/09/2025 1:18 PM Ny Kamara MA * Thoughts that you would be better off or hurting yourself in some way Answer Date of Assessment Author Not at all 03/09/2025 1:18 PM Ny Kamara MA * Patient Health Questionnaire-9 Score Answer Date of Assessment Author 5 03/09/2025 1:18 PM Ny Kamara MA * Over the last 2 weeks, how often have you been bothered by any of the following problems? Question Answer Date of Assessment Author Feeling nervous, anxious, or on edge 0 02/23 1:17 PM Андрей Kamara MA Not being able to stop or co ntrol worrying 0 03/09/2025 1:17 PM Андрей Kamara MA Worrying too much about diff erent things 0 03/09/2025 1:17 PM Андрей Kamara MA Trouble relaxing 1 03/09/2025 1:17 PM Андрей Andrade MA Being so restless that it is hard to sit still 1 03/09/2025 1:17 PM Андрей Kamara MA Becoming easily annoyed or irritable 0 02/23 1:17 PM Андрей Kamara MA Feeling afraid as if somethi ng awful might happen 2 03/09/2025 1:17 PM Андрей Kamara MA CARMEN-7 Total Score 4 03/09/2025 1:17 PM Андрей Kamara MA * How difficult have these problems made it for you to do your work, take care of things at home, or get along with other people? Answer Date of Assessment Author Somewhat difficult 03/09/2025 1:18 PM Андрей Kamara MA documented as of this encounter Miscellaneous Notes * Assessment & Plan Note - Celeste Luciano NP - 03/09/2025 1:00 PM ESTAssociated Problem(s): Primary hypertension Orders: losartan (Cozaar) 25 MG tablet; Take 1 tablet (25 mg) by mouth Once per day. Lipid Panel, Standard; Future Basic Metabolic Panel; Future * Assessment & Plan Note - Celeste Luciano NP - 03/09/2025 1:00 PM ESTAssociated Problem(s): BPH with elevated PSA and lower urinary tract symptoms Orders: PSA,Total; Future silodosin (Rapaflo) 8 MG capsule; Take 1 capsule (8 mg) by mouth Once per day. dutasteride (Avodart) 0.5 MG capsule; Take 1 capsule (0.5 mg) by mouth Once per day. documented in this encounter Plan of Treatment Upcoming Encounters Date Type Department Care Team (Late st Contact Info) Description 08/13/2025 1:00 PM EDT Office Visit [facility] [address] [place], [place] [address] Irma Avalos, OD [address] [place] [address] Scheduled Orders Name Type Priority Associated Diagnoses Orde r Schedule Cologuard colon cancer screening Lab Routine Screening for colon cancer Ordered: 03/09/2025 documented as of this encounter Procedures Procedure Name Priority Date/Time Associated Diagnosis Comments ALBUMIN, RANDOM URINE W/CREATININE Routine 03/09/2025 1:57 PM EST Microalbuminuria PSA, TOTAL Routine 03/09/2025 1:57 PM EST BPH with elevated PSA and lower urinary tract symptoms LIPID PANEL, STANDARD Routine 03/09/2025 1:57 PM EST Primary hypertension BASIC METABOLIC PANEL Routine 03/09/2025 1:57 PM EST Primary hypertension documented in this encounter Results * (ABNORMAL) Basic Metabolic Panel (03/09/2025 1:57 PM EST) Sodium 137 135 - 145 mmol/L [facility] Potassium 4.4 3.3 - 5.1 mmol/L [facility] Chloride 102 96 - 108 mmol/L [facility] Carbon Dioxide 30(H) 22 - 29 mmol/L [facility] Anion Gap 9(L) 12 - 20 [facility] Urea Nitrogen (BUN) 15 9 - 16 mg/dL [facility] Creatinine, Serum 0.67 0.5 - 1.4 mg/dL [facility] Estimated Glomerular Filt Rate >60 [facility] Comment:Chronic Kidney Disea se: Estimated GFR < 60 mL/min/[id number] Kidney Disease: Estimated GFR < 15 mL/min/1.73m2 Glucose 86 60 - 115 mg/dL [facility] Calcium 9.1 8.4 - 10.2 mg/dL [facility] Blood Venous blood specimen / Unknown 03/09/2025 1:57 PM EST 03/09/2025 4:00 PM EST us Celeste Luciano NP LAB BLOOD ORDERABLES Final Resu lt Performing Organization Address [facility] de Phone Number [facility] [address] [place] [address] [phone] * (ABNORMAL) Lipid Panel, Standard (03/09/2025 1:57 PM EST) Triglycerides 90 <150 mg/dL [facility] Comment:Desirable Triglyceri de: less than 150 mg/dLBorderline High Triglyceride 150-199 mg/dLHigh Triglyceride: 200-499 mg/dLVery High Triglyceride: greater than or equal to 5OO mg/dL Cholesterol 187 <200 mg/dL [facility] Comment:Desirable Cholestero l: less than 200 mg/dLBorderline High Cholesterol: 200-239 mg/dLHigh Cholesterol: greater than 239 mg/dL LDL Cholesterol Calculated 126(H) <100 mg/dL [facility] Comment:Desirable LDL: less than 100 mg/dLNear Optimal/Above Optimal LDL: 110- 129 mg/dLBorderline High LDL: 130-159 mg/dLHigh LDL: 160-189 mg/dLVery High LDL: greater than or equal to 190 mg/dL HDL Cholesterol 43 >40 mg/dL [facility] Comment:Desirable HDL: great er than 40 mg/dL Note: This HDL assay may give artificially low results in patients with liver disease. Blood Venous blood specimen / Unknown 03/09/2025 1:57 PM EST 03/09/2025 4:00 PM EST Celeste Luciano NP LAB BLOOD ORDERABLES Final Resu lt Performing Organization Address [facility] Co de Phone Number [facility] [address] [place] [address] [phone] * (ABNORMAL) PSA,Total (03/09/2025 1:57 PM EST) Prostate Specific Antigen 6.88(H) <0.05 - 4.0 ng/mL [facility] Comment:PSA methodology: Abb martha Alinity i ChemiluminescentMicroparticle Immunoassay (CMIA) Blood Venous blood specimen / Unknown 03/09/2025 1:57 PM EST 03/09/2025 4:00 PM EST Celeste Luciano CONTOUR PATH TAPE MILL OPERATOR LAB BLOOD ORDERABLES Final Resu lt Performing Organization Address [facility] de Phone Number [facility] [address] [place] [phone] * (ABNORMAL) Albumin, Random Urine W/Creatinine (03/09/2025 1:57 PM EST) Creatinine, Urine 146.38 mg/dL [facility] Microalbumin Urine 146.0 mg/L [facility] Microalbum Creatinine Ratio Ur 99.7(H) <30 ug/mg cr [facility] Comment:Albumin/Creatinine R atio Reference Ranges: Normal: < 30 ug/mg creatinine Microalbuminuria: 30 - 300 ug/mg creatinineClinical Albuminuria: > 300 ug/mg creatinine Urine (Urine, Random) 03/09/2025 1:57 PM EST 03/09/2025 4:12 PM EST us Celetse Luciano NP LAB URINE ORDERABLES Final Resu lt Performing Organization Address [facility] de Phone Number [facility] [address] [place] [phone] documented in this encounter Visit Diagnoses Diagnosis Microalbuminuria- Primary Proteinuria Primary hypertension Unspecified essential hypertension Screening for colon cancer Special screening for malignant neoplasms, colon BPH with elevated PSA and lower urinary tract symptoms documented in this encounter Additional Health Concerns Assessment Noted Time PHQ-9 Depression Total Score: 5 03/09/20 25 1:18 PM EST documented as of this encounter Care Teams Chief Crew Scheduler Relationship Specialty Start Date End Date Celeste Luciano NP [address] [place] [id number] PCP - General Family Medicine 01/30/24 documented as of this encounter
[2025-03-09 16:32] LABS: Anion Gap 9 (12-20); Blood Urea Nitrogen 15 mg/dL (9-16); Calcium 9.1 mg/dL (8.4-10.2); Carbon Dioxide 30 mmol/L (22-29); Chloride 102 mmol/L (96-108); Cholesterol 187 mg/dL (<200); Estimated Glomerular Filt Rate > 60; HDL Cholesterol 43 mg/dL (>40); Potassium 4.4 mmol/L (3.3-5.1); Sodium 137 mmol/L (135-145); Triglycerides 90 mg/dL (<150)
[2025-03-09 16:49] LABS: Prostate Specific Antigen 6.88 ng/mL (<0.05-4.0)
[2025-03-09 17:44] LABS: Microalbum/Creatinine Ratio Ur 99.7 ug/mg cr (<30)
--- OUTSIDE RECORDS SUMMARY | 2025-03-09 20:13 | XMS_ITS | Clinical Summary ---
Author Organization [employer] Address [address] [facility] [address] [place] [address] Care Team Providers Care Ruby On Rails Web Developer Name Role Phone Parmindernavid Celeste LAINEZ Primary Care Provider [phone] Allergies No known active allergies Medications hydrocortisone 1 % creamIndication s:Genital pruritus Apply topically 2 times daily. 28 g 01/16/20 24 Active baclofen (Lioresal) 10 MG tabletIndicatio ns:Acute right-sided low back pain without sciatica Take one tablet TID PRN 270 tablet 08/09/19 25 Active losartan (Cozaar) 25 MG tabletIndicatio ns:Primary hypertension Take 1 tablet (25 mg) by mouth Once per day. 90 tablet 1 5 2:40 PM EST 03/09/20 25 026 Active silodosin (Rapaflo) 8 MG capsuleIndicati ons:BPH with elevated PSA and lower urinary tract symptoms Take 1 capsule (8 mg) by mouth Once per day. 90 capsule 1 03/09/20 25 026 Active dutasteride (Avodart) 0.5 MG capsuleIndicati ons:BPH with elevated PSA and lower urinary tract symptoms Take 1 capsule (0.5 mg) by mouth Once per day. 90 capsule 1 5 2:40 PM EST 03/09/20 25 026 Active dutasteride (Avodart) 0.5 MG capsule Take 0.5 mg by mouth Once per day. 025 Discontinued(Re order (will not trigger notification to Pharmacy)) silodosin (Rapaflo) 8 MG capsule Take 8 mg by mouth Once per day. 025 Discontinued(Re order (will not trigger notification to Pharmacy)) losartan (Cozaar) 25 MG tabletIndicatio ns:Primary hypertension Take 1 tablet (25 mg) by mouth Once per day. 90 tablet 1 08/09/19 25 025 Discontinued(Re order (will not trigger notification to Pharmacy)) Active Problems Problem Noted Date Diagnosed Date Elevated PSA 11/05/2024 BPH with elevated PSA and lower urinary tract sy mptoms 11/05/2024 Assessment & Plan (03/09/2025 1:50 PM EST): Orders: PSA,Total; Future silodosin (Rapaflo) 8 MG capsule; Take 1 capsule (8 mg) by mouth Once per day. dutasteride (Avodart) 0.5 MG capsule; Take 1 capsule (0.5 mg) by mouth Once per day. Assessment & Plan (11/05/2024 2:21 PM EDT): -PSA 18.56 ng/dL as of 12/2023 -currently medications: flomax, Rapaflo (alpha 1 chanell) -repeat PSA, UA with reflex to culture ordered -CRP, CBC ordered per patient request. Primary hypertension 08/08/2024 Assessment & Plan (03/09/2025 1:50 PM EST): Orders: losartan (Cozaar) 25 MG tablet; Take 1 tablet (25 mg) by mouth Once per day. Lipid Panel, Standard; Future Basic Metabolic Panel; Future Assessment & Plan (11/05/2024 2:17 PM EDT): -BP above target goal of <140/90 mmHg -medication refills provided for Losartan -microalbumin: ordered today -ASCVD risk: TBD pending lipid labs -daily BP monitoring advised -low salt diet and 30 min moderate intensity daily exercise recommended -Reviewed ED precautions to include chest pain, shortness of breath, severe headache, sudden vision changes or BP >=180/>=120 mmHg. -Call clinic if three or more BP readings >130/80 mmHg. -follow-up upon [facility] Encounters Date Type Department Care Team Description 03/09/2025 1:00 PM EST Office Visit [facility] [address] Celeste Luciano NP Microalbuminuria (Primary Dx); Primary hypertension; Screening for colon cancer; BPH with elevated PSA and lower urinary tract symptoms 03/09/2025 Travel 03/06/2025 Telephone [facility] [place] [address] Celeste Luciano NP CHARTPREP 03/02/2025 Travel 01/15/2025 Telephone [facility] [place] [address] Celeste Luciano NP december12/09/2024 Telephone [facility] [place] [address] Celeste Luciano NP December Recall from Last 3 Months Social History Tobacco [...] Mass Index 30.7 03/09/2025 1:14 PM EST Plan of Treatment Upcoming Encounters Date Type Department Care Team (Late st Contact Info) Description 08/13/2025 1:00 PM EDT Office Visit [facility] OPTOMETRY [address] [place] [address] Robbie, Irma, OD [address] [place] [address] Health Maintenance Due Date Last Done Comments CT Colonography 1955 Colonoscopy 1956 FIT 1956 Sigmoidoscopy 1955 Hepatitis C Screening 1974 DTaP/Tdap/Td Vaccines (1 - Tdap) 1975 Pneumococcal Vaccine: 50+ Years (1 of 1 - PCV) 2006 Zoster Vaccines (1 of 2) 2006 FOBT 05/25/2022 05/25/2021 Colorectal Cancer Screening 05/25/2024 FIT DNA/Cologuard 05/25/2024 05/25/2021 COVID-19 Vaccine (1 - 2024-2 6 season) 2024 Influenza Vaccine (#1) 2024 Alcohol/Substance Use Screening 08/08/2025 08/08/2024 SDOH Screening 08/08/2025 08/08/2024 Depression Screening 03/09/2026 03/09/2025, 03/09/2025 Tobacco Screening 03/09/2026 03/09/2025 Lipid Panel 03/09/2030 03/09/2025, 08/08/2024 RSV Patients and Patients Aged 60 years or older (1 - [...] on patient's age to complete this topic Procedures Procedure Name Priority Date/Time Associated Diagnosis Comments BASIC METABOLIC PANEL Routine 03/09/2025 1:57 PM EST Primary hypertension LIPID PANEL, STANDARD Routine 03/09/2025 1:57 PM EST Primary hypertension PSA, TOTAL Routine 03/09/2025 1:57 PM EST BPH with elevated PSA and lower urinary tract symptoms ALBUMIN, RANDOM URINE W/CREATININE Routine 03/09/2025 1:57 PM EST Microalbuminuria from Last 3 Months Results * (ABNORMAL) Albumin, Random Urine W/Creatinine (03/09/2025 1:57 PM EST) Creatinine, Urine 146.38 mg/dL [facility] Microalbumin Urine 146.0 mg/L [facility] Microalbum Creatinine Ratio Ur 99.7(H) <30 ug/mg cr [facility] Comment:Albumin/Creatinine R atio Reference Ranges: Normal: < 30 ug/mg creatinine Microalbuminuria: 30 - 300 ug/mg creatinineClinical Albuminuria: > 300 ug/mg creatinine Urine (Urine, Random) 03/09/2025 1:57 PM EST 03/09/2025 4:12 PM EST [facility] DISPATCHER MAINTENANCE SERVICE LAB URINE ORDERABLES Final Resu lt Performing Organization Address City/[facility]/ZIP Co de Phone Number [facility] [address] [place] [phone] * (ABNORMAL) PSA,Total (03/09/2025 1:57 PM EST) Prostate Specific Antigen 6.88(H) <0.05 - 4.0 ng/mL [facility] Comment:PSA methodology: Abb martha Apodaca i ChemiluminescentMicroparticle Immunoassay (CMIA) Blood Venous blood specimen / Unknown 03/09/2025 1:57 PM EST 03/09/2025 4:00 PM EST [facility] LAB BLOOD ORDERABLES Final Resu lt Performing Organization Address City/[facility]/ZIP Co de Phone Number [facility] [address] [place] [phone] * (ABNORMAL) Lipid Panel, Standard (03/09/2025 1:57 PM EST) Triglycerides 90 <150 mg/dL [facility] Comment:Desirable Triglyceri de: less than 150 mg/dLBorderline High Triglyceride 150-199 mg/dLHigh Triglyceride: 200-499 mg/dLVery High Triglyceride: greater than or equal to 5OO mg/dL Cholesterol 187 <200 mg/dL [facility] Comment:Desirable Cholestero l: less than 200 mg/dLBorderline High Cholesterol: 200-239 mg/dLHigh Cholesterol: greater than 239 mg/dL LDL Cholesterol Calculated 126(H) <100 mg/dL [facility] Comment:Desirable LDL: less than 100 mg/dLNear Optimal/Above Optimal LDL: 110- 129 mg/dLBorderline High LDL: 130-159 mg/dLHigh LDL: 160-189 mg/dLVery High LDL: greater than or equal to 190 mg/dL HDL Cholesterol 43 >40 mg/dL [facility] Comment:Desirable HDL: great er than 40 mg/dL Note: This HDL assay may give artificially low results in patients with liver disease. Blood Venous blood specimen / Unknown 03/09/2025 1:57 PM EST 03/09/2025 4:00 PM EST Celeste Luciano NP LAB BLOOD ORDERABLES Final Resu lt [facility] [address] [place] [phone] * (ABNORMAL) Basic Metabolic Panel (03/09/2025 1:57 PM EST) Sodium 137 135 - 145 mmol/L [facility] Potassium 4.4 3.3 - 5.1 mmol/L [facility] Chloride 102 96 - 108 mmol/L [facility] Carbon Dioxide 30(H) 22 - 29 mmol/L [facility] Anion Gap 9(L) 12 - 20 [facility] Urea Nitrogen (BUN) 15 9 - 16 mg/dL [facility] Creatinine, Serum 0.67 0.5 - 1.4 mg/dL [facility] Estimated Glomerular Filt Rate >60 [facility] Comment:Chronic Kidney Disea se: Estimated GFR < 60 mL/min/1.86c3Rwaepz Kidney Disease: Estimated GFR < 15 mL/min/1.73m2 Glucose 86 60 - 115 mg/dL [facility] Calcium 9.1 8.4 - 10.2 mg/dL [facility] Blood Venous blood specimen / Unknown 03/09/2025 1:57 PM EST 03/09/2025 4:00 PM EST Celeste Luciano DISPATCHER MAINTENANCE SERVICE LAB BLOOD ORDERABLES Final Resu lt [facility] [address] [place] [phone] [phone] from Last 3 Months Insurance HSN FULL Care Teams Ruby On Rails Web Developer Relationship Specialty Start Date End Date Celeste Luciano NP [address] [place] [phone] PCP - General Family Medicine 01/30/24
--- OUTSIDE RECORDS SUMMARY | 2025-03-09 20:14 | XMS_ITS | Encounter Summary ---
Author Organization [employer] Address [address] [facility] [address] [place] [address] Care Team Providers Care Sql Engineer Name Role Phone Parmindernavid Celeste FATOU Primary Care Provider [phone] Encounter Details Date Type Department Care Team (Latest Contact Info) Description 03/09/2025 Travel Social History Tobacco Use Types Packs/Day [...] Health Questionnaire-2 Score 2 02/23 1:18 PM Андрей Kamara MA * Little interest or pleasure in doing things Answer Date of Assessment Author Several days 03/09/2025 1:18 PM Ny Kamara MA * Feeling down, depressed, or hopeless [...] Kamara MA documented as of this encounter Plan of Treatment Upcoming Encounters Date Type Department Care Team (Late st Contact Info) Description 08/13/2025 1:00 PM EDT Office Visit [facility] OPTOMETRY [address] [place] [address] Irma Avalos, OD [address] [place] [address] documented as of this encounter Visit Diagnoses Not on filedocumented in this encounter Additional Health Concerns Assessment Noted Time PHQ-9 Depression Total Score: 5 03/09/20 25 1:18 PM EST documented as of this encounter Care Teams Sql Engineer Relationship Specialty Start Date End Date Celeste Luciano NP [address] [place] [address] PCP - General Family Medicine 01/30/24 documented as of this encounter
--- OUTSIDE RECORDS SUMMARY | 2025-03-09 20:14 | XMS_ITS | Patient Health Record ---
Author Organization [employer] [facility] Billing Info Address [address] [place], [place] [id number] Phone [phone] Care Team Providers Care Patient Case Manager Name Role Phone DR MIQUEL MARINELLI Primary Care Provider Unavailabl e Allergies No Known Allergies Reason For Referral No Information Medications Medication SIG (Take, Route, Frequency, Duration) Notes Start Date End Date Diagnosis (ICD Code) Status Tadalafil 10 MG Tablet 1 tablet as needed Orally; Duration: 30 day(s) Active Atorvastatin Calcium 20 MG Tablet 1 tablet Orally Once a day; Duration: 30 day(s) Active Finasteride 5 MG Tablet 1 tablet Orally Once a day; Duration: 30 day(s) Active Tamsulosin HCl 0.4 MG Capsule 1 capsule Orally Once a day; Duration: 30 day(s) Active Solifenacin Succinate 5 MG Tablet 1 tablet Orally Once a day; Duration: 30 day(s) Active Social History Tobacco Use: Social History Observation Description Date Details (start date - stop date) Former Smoker NA - NA Sex Observation Social History Observation Description Sex Observation Male Social History Social History Social Info Question Answer Notes Tobacco Status: Patient is a former smoker Alcohol Use: Patient uses alcohol occasional Additional Details Category Social Info Options Details Social History 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 Caffeine: yes frequency:1 Children: yes sons: daughters: 3 Marital Status: Plan Of Treatment Pending Test Test Name Order Date COLONOSCOPY, SCREENING, INDIVIDUAL W/OUT HIGH RISK (G0121) 03/31/2021 Insurance Providers Payer Name Payer Address Payer Phone Subscriber Number Group Number Insured Name Patient Relationship to Insured Coverage Start Date Coverage End Date BRIGHT TH CLAIMS PRIOR TO 2021 [address] [address] JESSICA SARGENT [id number] ALYSIA GOLDMAN Self - patient is the insured Medical (General) History Medical History History ICD Code Hyperlipidemia Hypertension BPH Neurogenic bladder Surgical History Surgery Date(Month/Year) laminectomy hernia repair
--- OUTSIDE RECORDS SUMMARY | 2025-03-09 20:14 | XMS_ITS | Encounter Summary ---
Author Organization [employer] Address [address] [place] [address] [address] [address] Care Team Providers Care Field Map Editor Name Role Phone Celeste Luciano FATOU Primary Care Provider [phone] Reason for Visit * Reason Onset Date Comments Med Refill 04/03/2024 Encounter Details Date Type Department Care Team (Late Contact Info) Description 04/03/2024 Refill [facility] [address] [place] [address] Cabrera Lezama MD [address] [place] [address] Urinary retention Social History Tobacco Use Types [...] Encounters Date Type Department Care Team (Late Contact Info) Description 08/13/2025 1:00 PM EDT Office Visit [facility] OPT[facility]ETRY [address] [place] [address] Robbie, Irma, OD [address] [place] [address] documented as of this encounter Visit Diagnoses Diagnosis Urinary retention Unspecified retention of urine documented in this encounter Care Teams Field Map Editor Relationship Specialty Start Date End Date Celeste Luciano NP [address] [place] [address] PCP - General Family Medicine 01/30/24 documented as of this encounter
--- OUTSIDE RECORDS SUMMARY | 2025-03-09 20:14 | XMS_ITS | Clinical Summary ---
Author Organization [facility] Address [address] [place] [address] Care Team Providers Care Lidar Technician Name Role Phone Unavailable Primary Care Provider [...] 64 01/11/2021 11:11 AM EDT Temperature 36.5 C (97.7 F) 01/11/2021 11:11 AM EDT Respiratory Rate - - Oxygen Saturation 97% 01/11/2021 11:11 AM EDT Inhaled Oxygen Concentration - - Weight 90.7 kg (200 lb) 01/11/2021 11:11 AM EDT Height 170 cm (5' 6.93 ) 01/11/2021 11:11 AM EDT Body Mass Index 31.39 01/11/2021 11:11 AM EDT Plan of Treatment Health Maintenance Due Date Last Done Comments Advance Care Planning 1955 Hepatitis C Virus Screening 1955 DTaP/Tdap/Td Vaccines (1 - Tdap) 1975 Colonoscopy 2001 Pneumococcal Vaccines 50+ (1 of 1 - PCV) 2006 Zoster (Shingles) Vaccine (1 of 2) 2006 Influenza Vaccine 10/24/2024 COVID-19 Vaccine ( - 2024-2 6 season) 2024 RSV Vaccine 50 years and old er and Patients (1 - 1-dose 75+ series) 2031 Hepatitis B Vaccines Aged Out No long er eligible based on patient's age to complete this topic Insurance [facility]
--- OUTSIDE RECORDS SUMMARY | 2025-03-09 20:14 | XMS_ITS | Encounter Summary ---
Author Organization [employer] Address [address] [place] [address] Care Team Providers Care Dough Scaler And Mixer Name Role Phone Celeste Luciano NP Primary Care Provider [phone] Reason for Visit * Reason Onset Date Comments Med Refill 04/03/2024 Encounter Details Date Type Department Care Team (Late st Contact Info) Description 04/03/2024 Refill [facility] [address] [place] [address] Celeste Luciano NP [address] [place] [address] Hx of primary hypertension Social History Tobacco [...] Description 08/13/2025 1:00 PM EDT Office Visit [facility] OPTOM[facility]RY [address] [place] [address] Robbie, Irma, OD [address] [place] [address] documented as of this encounter Visit Diagnoses Diagnosis Hx of primary hypertension documented in this encounter Care Teams Dough Scaler And Mixer Relationship Specialty Start Date End Date Celeste Luciano NP [address] [place] [address] PCP - General Family Medicine 01/30/24 documented as of this encounter
--- OUTSIDE RECORDS SUMMARY | 2025-03-09 20:14 | XMS_ITS | Encounter Summary ---
Author Organization [employer] Address [address] [place] [address] [address] [place] [address] Care Team Providers Care Casing Cooker Name Role Phone Celeste Luciano NP Primary Care Provider [phone] Reason for Visit * Reason Onset Date Comments CHARTPREP 03/06/2025 Encounter Details Date Type Department Care Team (Late st Contact Info) Description 03/06/2025 Telephone [facility] [address] [place] [address] Celeste Luciano NP [address] [place] [address] CHARTPREP Social History Tobacco Use Types Packs/Day Years Used Date Smoking Tobacco: Former Cigarettes Passive Smoke Exposure: Current Smokeless Tobacco: Former Depression Answer Date Recorded Patient Health Questionnaire-9 Score 13 08/08/2024 Patient Health Questionnaire-9 Score 13 08/08/2024 Last PHQ-9: Questionnaire Data Not on file 0 08/08/2024 Housing Stability Answer Date Recorded What is [...] Recorded Patient Health Questionnaire-2 Score 4 08/08/2024 Internet Access Answer Date Recorded Internet Access [...] Telephone Encounter - Nishi Ross MA - 03/06/2025 2:15 PM EST Chart Prep Labs: done Images: not applicable Referrals: no show Optometry Vaccines due: Covid, Flu, PCV20, Tdap, and Zoster Screenings: colonoscopy,Hep C screening, Overdue care gaps: PHQ-9 and CARMEN-7 documented in this encounter Plan of Treatment Upcoming Encounters Date Type Department Care Team (Late st Contact Info) Description 08/13/2025 1:00 PM EDT Office Visit [facility] OPTOMETRY [address] [place] [address] Robbie, Irma, OD [address] [place] [address] documented as of this encounter Visit Diagnoses Not on filedocumented in this encounter Additional Health Concerns Assessment Noted Time PHQ-9 Depression Total Score: 13 025 11:15 AM EDT documented as of this encounter Care Teams Casing Cooker Relationship Specialty Start Date End Date Celeste Luciano NP [address] [place] [address] PCP - General Family Medicine 01/30/24 documented as of this encounter
--- OUTSIDE RECORDS SUMMARY | 2025-03-09 20:14 | XMS_ITS | Encounter Summary ---
Author Organization [email or web address] Address [address] [place] [address] Care Team Providers Care Research Recruiter Name Role Phone Celeste Luciano NP Primary Care Provider [phone] Encounter Details Date Type Department Care Team (Late st Contact Info) Description 07/15/2024 Telephone [facility] [address] [place] [address] Celeste Luciano, FATOU [address] [place] [address] Social History Tobacco Use Types Packs/Day Years [...] 1:00 PM EDT Office Visit [facility] OPTOMETRY [address] [place] [address] Irma Avalos OD [address] [place] [address] documented as of this encounter Visit Diagnoses Not on filedocumented in this encounter Care Teams Research Recruiter Relationship Specialty Start Date End Date Celeste Luciano NP [address] [place] [address] PCP - General Family Medicine 01/30/24 documented as of this encounter
== END 2025-03-09 13:55 | disposition home or self-care (01) ==
LOC: HO.HHCL 13:54
PROVIDERS: PCP Nurse Practitioner; Visit Provider Nurse Practitioner
DX: Z12.5 Encounter for screening for malignant neoplasm of prostate (principal); N40.0 Benign prostatic hyperplasia without lower urinary tract symptoms; I10 Essential (primary) hypertension; R97.20 Elevated prostate specific antigen [PSA]; R80.9 Proteinuria, unspecified
CPT/HCPCS: 36415; 80048; 80061; 82043; 82570; 84153